=== PATIENT | female | born 1925 | race Caucasian/White ===

== ENCOUNTER → 2016-04-08 | Outpatient (CLI) | payer MEDICARE ==
[~2016-04-08] MED LIST: ROPIVACAINE 1% 10 MG/ML (NAROPIN) 20 ML AMPUL ONE; methylPREDNISolone 80 MG/ML (DEPO MEDROL) VIAL IM ONE
== END ==
LOC: PMC 13:06
PROVIDERS: ATTEND Internal Medicine Gastroenterology
DX: M47.897 Other spondylosis, lumbosacral region (principal); M47.816 Spondylosis without myelopathy or radiculopathy, lumbar region; M51.36 Other intervertebral disc degeneration, lumbar region
CPT/HCPCS: 64493; J1040; J2795

== ENCOUNTER → 2016-04-26 | Outpatient (CLI) | payer MEDICARE | LOC: RAD 11:19 | PROVIDERS: ATTEND Family Medicine | DX: G44.89 Other headache syndrome (principal); G31.89 Other specified degenerative diseases of nervous system | CPT/HCPCS: 70450 ==